=== PATIENT | male | born 1990 | race African-American/Black ===

== ENCOUNTER 2017-03-20 12:09 | Emergency (ER) | payer SELFPAY ==
[~2017-03-20] VITALS: Ht 177.8 cm; Wt 70.5 kg
[2017-03-20 12:16] VITALS: BP 124/58; PULSE 84; TEMP 98.1
== END 2017-03-20 14:00 | disposition left against medical advice (07) ==
LOC: COL.ER 12:09
DX: M79.602 Pain in left arm (principal)